=== PATIENT | female | born 1980 | race Caucasian/White ===

== ENCOUNTER 2017-01-03 05:25 | Inpatient (IN) | payer BC ==
[~2017-01-03 05:25] MED LIST: ADVAIR 100-501 EACH PO; AMPICILLIN TRI500 M1 PO; IMITREX100 M2 PO; MIRTAZAPINE30 M2 PO; NEURONTIN300 M1 PO; OXYCONTIN10 M2 PO; PERCOCET 5-3251 EACH PO; TOPAMAX50 M3 PO; VENTOLIN HFA18 G2 INH; XANAX0.5 M1 PO
[2017-01-03] MEDS ORDERED: COLACE100 M1 PO (06:41)
[2017-01-04] MEDS ORDERED: SENOKOT-S TABL1 EACH PO (13:35)
[2017-01-04] MEDS ORDERED: CYCLOBENZAPRINE5 M1 PO (13:35)
== END 2017-01-04 14:20 | DRG 518 ==
LOC: SHSC 05:25 → ORE 07:38 → PACU 10:03 → 5EB 12:55
PROVIDERS: ADMIT Orthopaedic Surgery
PROC: 0RR30JZ Replacement of Cervical Vertebral Disc with Synthetic Substitute, Open Approach (ICD-10-PCS; principal; 2017-01-03)
DX: M47.892 Other spondylosis, cervical region (principal); M50.222 Other cervical disc displacement at C5-C6 level; M54.10 Radiculopathy, site unspecified; R51 Headache
CPT/HCPCS: G0009; J0131; J0690; J1170; J1885; J2250; J2270; J2405; J3010